=== PATIENT | male | born 1980 | race Caucasian/White ===

== ENCOUNTER 2021-08-24 17:07 | Emergency (ER) | payer OTHER ==
[2021-08-24 17:39] VITALS: O2SAT 96
[2021-08-24 17:49] LABS: COVID AG -BINAX NOW RAPID TEST POSITIVE (NEGATIVE)
--- NOTE | 2021-08-24 18:10 | ERPHSYRPT ---
- History of Present Illness Source: patient Exam Limitations: no limitations Patient Subjective Stated Complaint: fever Triage Nursing Assessment: Patient ambulated back to ED and transferred self to bed. Patient A+O X 3. Patient's skin pink, warm and dry. Patient complains of fever and body aches since last tuesday. Patient denies pain or discomfort. Physician History: 41 yo wm w cough/coryza/resolved fever/resolved myalgias x 1wk. Pt is un vaccinated. He denies N/V/D/WHITTEN. Timing/Duration: other (1wk) Cough Quality/Degree: dry cough Possible Cause: no prior episodes Modifying Factors: Improves With: coughing Associated Symptoms: cough, nasal congestion, nasal drainage, No fever, No chills, No chest pain/soreness, No dizziness, No earache, No facial pain, No headache, No lightheadedness, No muscle aches, No shortness of breath, No sinus infection, No sore throat Allergies/Adverse Reactions: amoxicillin Allergy (Verified 08/24/21 17:29) cephalexin [From Keflex] Allergy (Verified 08/24/21 17:29) Home Medications: atenoloL [Atenolol] 1 tab PO DAILY 08/24/21 [History] hydroCHLOROthiazide [Hydrochlorothiazide] 1 tab PO DAILY 08/24/21 [History] Hx Influenza Vaccination/Date Given: No Hx Pneumococcal Vaccination/Date Given: No Immunizations Up to Date: Yes Travel Risk - International Travel Have you traveled outside of the country in past 3 weeks: No - Coronavirus Screening Are you exhibiting any of the following symptoms?: Yes Symptoms: Fever, Headaches/Body Aches/Fatigue Close contact with a COVID-19 positive Pt in past 14-21 Days: No - Vaccine Status Have you recieved a Covid-19 vaccination: No - Review of Systems Constitutional: No Symptoms Eyes: No Symptoms Ears, Nose, & Throat: No Symptoms, Nose Congestion, Nose Discharge, Sinus Drainage Respiratory: Cough Cardiac: No Symptoms Abdominal/Gastrointestinal: No Symptoms Genitourinary Symptoms: No Symptoms Musculoskeletal: No Symptoms Skin: No Symptoms Neurological: No Symptoms Psychological: No Symptoms Endocrine: No Symptoms Hematologic/Lymphatic: No Symptoms Immunological/Allergic: No Symptoms - Past Medical History Pertinent Past Medical History: Yes Neurological History: No Pertinent History ENT History: No Pertinent History Cardiac History: Hypertension Respiratory History: No Pertinent History Endocrine Medical History: No Pertinent History Musculoskeletal History: No Pertinent History GI Medical History: No Pertinent History History: No Pertinent History Psycho-Social History: No Pertinent History Male Reproductive Disorders: No Pertinent History - Past Surgical History Past Surgical History: No Neuro Surgical History: No Pertinent History Cardiac: No Pertinent History Respiratory: No Pertinent History Gastrointestinal: No Pertinent History Genitourinary: No Pertinent History Musculoskeletal: No Pertinent History Male Surgical History: No Pertinent History - Social History Smoking Status: Current every day smoker How long have you smoked: years Exposure to second hand smoke: No Drug Use: none Patient Lives Alone: No Significant Family History: no pertinent family hx - Nursing Vital Signs Nursing Vital Signs: Initial Vital Signs Temperature 99.3 F 08/24/21 17:29 Pulse Rate 85 08/24/21 17:29 Respiratory Rate 18 08/24/21 17:29 Blood Pressure 162/128 08/24/21 17:29 O2 Sat by Pulse Oximetry 96 08/24/21 17:29 Pain Scale Pain Intensity 0 Hypertensive - Physical Exam General Appearance: no apparent distress Eye Exam: PERRL/EOMI, eyes nml inspection Ears, Nose, Throat Exam: normal ENT inspection, TMs normal, pharynx normal, moist mucous membranes Neck Exam: normal inspection, non-tender, supple, full range of motion, No meningismus, No mass, No Brudzinski, No Kernig's Respiratory Exam: normal breath sounds, lungs clear, airway intact, No respiratory distress Cardiovascular Exam: regular rate/rhythm, normal heart sounds, normal peripheral pulses, No murmur Gastrointestinal/Abdomen Exam: soft, normal bowel sounds, No tenderness Back Exam: normal inspection, normal range of motion, No CVA tenderness, No vertebral tenderness Extremity Exam: normal inspection, normal range of motion Neurologic Exam: alert, oriented x 3, cooperative, 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, normal mood/affect, nml cerebellar function, nml station & gait, sensation nml, No motor deficits, No sensory deficit Skin Exam: normal color, warm, dry, No rash Lymphatic Exam: No adenopathy SpO2 Interpretation: normal SpO2: 96 O2 Delivery: Room Air - Course Nursing assessment & vital signs reviewed: Yes Ordered Tests: Active Orders 24 hr Category Date Time Status COVID AG-BINAX NOW RAPID TEST Stat Lab 08/24/21 17:39 Completed Lab/Rad Data: Laboratory Results 08/24/21 Range/Units 17:39 SARS-CoV-2 Ag (Rapid) POSITIVE A* (NEGATIVE) - Progress Progress Note: 08/24/21 18:39 Pt to take BP meds when he gets home Counseled pt/family regarding: lab results, diagnosis, need for follow-up - Departure Departure Disposition: Home Clinical Impression: COVID, Hypertension Condition: Stable Critical Care Time: No Referrals: DOCTOR,NO FAMILY [Primary Care Provider] - Follow up/PCP as directed Instructions: Fever, Adult (DC), Coronavirus Disease 2019 (COVID-19) (DC) Additional Instructions: Get a pulse oximeter and monitor oxygen saturation 2-3 times a day Return to ER for persistent oxygen saturation less than 91% VitaminD 10,000units a day/Zinc 50mg a day/Pepcid 40mg a day Watch your blood pressure
[2021-08-24 18:11] VITALS: BP 149/119; PULSE 86
== END 2021-08-24 18:22 | disposition home or self-care (01) ==
LOC: ED 17:07
DX: U07.1 COVID-19 (principal); I10 Essential (primary) hypertension; R05.9 Cough, unspecified; R09.81 Nasal congestion; Z72.0 Tobacco use; Z79.899 Other long term (current) drug therapy
CPT/HCPCS: 99000; 99283

== ENCOUNTER 2022-04-19 16:05 | Emergency (ER) | payer MEDICARE, OTHER ==
--- NOTE | 2022-04-19 16:08 | ERPHSYRPT ---
- History of Present Illness Time Seen by Provider: 04/19/22 16:07 Source: patient Exam Limitations: no limitations Physician History: This is a morbidly obese white male who is 41 years of age and presents with dizziness and clammy feeling that began later in the morning. Symptoms have improved but are not completely resolved. He has no chest pain. He has no shortness of breath he has no abdominal pain. Patient is relatively newly diagnosed diabetic and he has a history of hypertension. There is been no recent changes to his medication that he has been on for over a month. He did not hit his head. Timing/Duration: today Cough Quality/Degree: no cough Possible Cause: no prior episodes Modifying Factors: Improves With: nothing Associated Symptoms: dizziness, headache, lightheadedness, No fever, No chills, No cough, No nasal congestion, No shortness of breath, No sore throat Allergies/Adverse Reactions: amoxicillin Allergy (Verified 08/24/21 17:29) cephalexin [From Keflex] Allergy (Verified 08/24/21 17:29) Home Medications: atenoloL [Atenolol] 1 tab PO DAILY 08/24/21 [History] hydroCHLOROthiazide [Hydrochlorothiazide] 1 tab PO DAILY 08/24/21 [History] Hx Influenza Vaccination/Date Given: No Hx Pneumococcal Vaccination/Date Given: No Travel Risk - International Travel Have you traveled outside of the country in past 3 weeks: No - Coronavirus Screening Are you exhibiting any of the following symptoms?: Yes Symptoms: Headaches/Body Aches/Fatigue - Vaccine Status Have you recieved a Covid-19 vaccination: No - Review of Systems Constitutional: No Symptoms Eyes: No Symptoms Ears, Nose, & Throat: No Symptoms Respiratory: No Symptoms Cardiac: No Symptoms Abdominal/Gastrointestinal: No Symptoms Genitourinary Symptoms: No Symptoms Musculoskeletal: Arthralgias, Myalgias Skin: No Symptoms Neurological: Dizziness Psychological: No Symptoms Endocrine: No Symptoms Hematologic/Lymphatic: No Symptoms Immunological/Allergic: No Symptoms All Other Systems: Reviewed and Negative - Past Medical History Pertinent Past Medical History: Yes Neurological History: No Pertinent History ENT History: No Pertinent History Cardiac History: Hypertension Respiratory History: No Pertinent History Endocrine Medical History: No Pertinent History Musculoskeletal History: No Pertinent History GI Medical History: No Pertinent History History: No Pertinent History Psycho-Social History: No Pertinent History Male Reproductive Disorders: No Pertinent History - Past Surgical History Past Surgical History: No Neuro Surgical History: No Pertinent History Cardiac: No Pertinent History Respiratory: No Pertinent History Gastrointestinal: No Pertinent History Genitourinary: No Pertinent History Musculoskeletal: No Pertinent History Male Surgical History: No Pertinent History - Social History Smoking Status: Current every day smoker How long have you smoked: years Exposure to second hand smoke: No Drug Use: none Patient Lives Alone: No Significant Family History: no pertinent family hx - Nursing Vital Signs Nursing Vital Signs: Initial Vital Signs Temperature 98.7 F 04/19/22 16:05 Pulse Rate 73 04/19/22 16:05 Respiratory Rate 14 04/19/22 16:05 Blood Pressure 155/100 04/19/22 16:05 O2 Sat by Pulse Oximetry 95 04/19/22 16:05 Pain Scale Pain Intensity 0 - Physical Exam General Appearance: no apparent distress, alert, anxiety, obese Eye Exam: PERRL/EOMI, eyes nml inspection Ears, Nose, Throat Exam: normal ENT inspection, moist mucous membranes Neck Exam: normal inspection, non-tender, supple, full range of motion Respiratory Exam: normal breath sounds, lungs clear, airway intact, No chest tenderness, No respiratory distress Cardiovascular Exam: regular rate/rhythm, normal heart sounds, normal peripheral pulses Gastrointestinal/Abdomen Exam: soft, normal bowel sounds, No tenderness Rectal Exam: not done Back Exam: normal inspection, normal range of motion, No CVA tenderness, No vertebral tenderness Extremity Exam: normal inspection, normal range of motion, pelvis stable Neurologic Exam: alert, oriented x 3, cooperative, 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, normal mood/affect, nml cerebellar function, nml station & gait, sensation nml Skin Exam: normal color, warm, dry Lymphatic Exam: No adenopathy SpO2 Interpretation: normal O2 Delivery: Room Air - Course Nursing assessment & vital signs reviewed: Yes Ordered Tests: Active Orders 24 hr Category Date Time Status EKG-ER Only STAT Care 04/19/22 16:42 Active IV Insertion STAT Care 04/19/22 16:42 Active POCT Glucose Check STAT Care 04/19/22 16:48 Active HEAD WITHOUT CONTRAST [CT] Stat Exams 04/19/22 16:43 Completed CBC W DIFF Stat Lab 04/19/22 16:56 Completed CMP Stat Lab 04/19/22 16:56 Completed Lactic Acid Stat Lab 04/19/22 16:55 Completed MAGNESIUM Stat Lab 04/19/22 16:56 Completed POCT GLUCOSE Stat Lab 04/19/22 16:25 Completed TROPONIN Q4H Lab 04/19/22 15:56 Completed TROPONIN Q4H Lab 04/19/22 20:45 Ordered UA W/RFX CULTURE Stat Lab 04/19/22 16:47 Completed Lab/Rad Data: Laboratory Result Diagrams 04/19/22 16:56 04/19/22 16:56 Laboratory Results 04/19/22 04/19/22 04/19/22 Range/Units 16:56 16:56 16:56 WBC 11.9 H (4.0-10.5) x10^3/uL RBC 5.82 H (4.1-5.6) x10^6/uL Hgb 16.8 (12.5-18.0) g/dL Hct 51.5 H (42-50) % MCV 88.5 (78-100) fL MCH 28.9 (26-32) pg MCHC 32.6 (32-36) g/dL RDW 13.0 (11.5-14.0) % Plt Count 218 (150-450) x10^3/uL MPV 11.0 (7.5-11.0) fL Gran % 73.0 H (36.0-66.0) % Immature Gran % (Auto) 0.3 (0.00-0.4) % Nucleat RBC Rel Count 0.0 (0.00-0.1) % Eos # (Auto) 0.32 (0-0.5) x10^3/uL Immature Gran # (Auto) 0.04 H (0.00-0.03) x10^3u/L Absolute Lymphs (auto) 2.08 (1.0-4.6) x10^3/uL Absolute Monos (auto) 0.69 (0.0-1.3) x10^3/uL Absolute Nucleated RBC 0.00 (0.00-0.01) x10^3u/L Lymphocytes % 17.5 L (24.0-44.0) % Monocytes % 5.8 (0.0-12.0) % Eosinophils % 2.7 (0.00-5.0) % Basophils % 0.7 (0.0-0.4) % Absolute Granulocytes 8.68 H (1.4-6.9) x10^3/uL Basophils # 0.08 (0-0.4) x10^3/uL Sodium 137 (137-145) mmol/L Potassium 3.8 (3.5-5.1) mmol/L Chloride 102 (98-107) mmol/L Carbon Dioxide 26 (22-30) mmol/L Anion Gap 12.8 (5-15) MEQ/L BUN 15 (9-20) mg/dL Creatinine 0.95 (0.66-1.25) mg/dL Estimated GFR > 60.0 ML/MIN Glucose 135 H (74-106) mg/dL POC Glucometer (74 to 106) mg/dL Lactic Acid (0.4-2.0) Calcium 8.9 (8.4-10.2) mg/dL Magnesium 2.2 (1.6-2.3) mg/dL Total Bilirubin 0.80 (0.2-1.3) mg/dL AST 27 (17-59) U/L ALT 31 (0-50) U/L Alkaline Phosphatase 57 (38-126) U/L Troponin I (0.000-0.034) ng/mL Serum Total Protein 8.0 (6.3-8.2) g/dL Albumin 4.4 (3.5-5.0) g/dL Urinalys Dipstick Clnc Urine Color (YELLOW) Urine Appearance (CLEAR) Urine pH (5-6) Ur Specific [place] (1.005-1.025) POC Urine Protein Conf (Negative) Urine Ketones (NEGATIVE) Urine Nitrite (NEGATIVE) Urine Bilirubin (NEGATIVE) Urine Urobilinogen (0-1) mg/dL Urine Leukocytes (NEGATIVE) Urine WBC (Auto) (0-5) /HPF Urine RBC (Auto) (0-2) /HPF U Epithel Cells (Auto) (FEW) /HPF Urine Bacteria (Auto) (NEGATIVE) /HPF Urine RBC (0-5) Peter/ul Ur Culture Indicated? Urine Glucose (NEGATIVE) mg/dL Influenza Type A Ag NEGATIVE (NEGATIVE) Influenza Type B Ag NEGATIVE (NEGATIVE) RSV (PCR) NEGATIVE (Negative) SARS-CoV-2 (PCR) NEGATIVE (NEGATIVE) 09/26/22 09/26/22 09/26/22 Range/Units 16:55 16:47 16:25 WBC (4.0-10.5) x10^3/uL RBC (4.1-5.6) x10^6/uL Hgb (12.5-18.0) g/dL Hct (42-50) % MCV (78-100) fL MCH (26-32) pg MCHC (32-36) g/dL RDW (11.5-14.0) % Plt Count (150-450) x10^3/uL MPV (7.5-11.0) fL Gran % (36.0-66.0) % Immature Gran % (Auto) (0.00-0.4) % Nucleat RBC Rel Count (0.00-0.1) % Eos # (Auto) (0-0.5) x10^3/uL Immature Gran # (Auto) (0.00-0.03) x10^3u/L Absolute Lymphs (auto) (1.0-4.6) x10^3/uL Absolute Monos (auto) (0.0-1.3) x10^3/uL Absolute Nucleated RBC (0.00-0.01) x10^3u/L Lymphocytes % (24.0-44.0) % Monocytes % (0.0-12.0) % Eosinophils % (0.00-5.0) % Basophils % (0.0-0.4) % Absolute Granulocytes (1.4-6.9) x10^3/uL Basophils # (0-0.4) x10^3/uL Sodium (137-145) mmol/L Potassium (3.5-5.1) mmol/L Chloride (98-107) mmol/L Carbon Dioxide (22-30) mmol/L Anion Gap (5-15) MEQ/L BUN (9-20) mg/dL Creatinine (0.66-1.25) mg/dL Estimated GFR ML/MIN Glucose (74-106) mg/dL POC Glucometer 140 H (74 to 106) mg/dL Lactic Acid 1.2 (0.4-2.0) Calcium (8.4-10.2) mg/dL Magnesium (1.6-2.3) mg/dL Total Bilirubin (0.2-1.3) mg/dL AST (17-59) U/L ALT (0-50) U/L Alkaline Phosphatase (38-126) U/L Troponin I (0.000-0.034) ng/mL Serum Total Protein (6.3-8.2) g/dL Albumin (3.5-5.0) g/dL Urinalys Dipstick Clnc MAIN LAB Urine Color YELLOW (YELLOW) Urine Appearance CLEAR (CLEAR) Urine pH 6.0 (5-6) Ur Specific [place] 1.010 (1.005-1.025) POC Urine Protein Conf NEGATIVE (Negative) Urine Ketones NEGATIVE (NEGATIVE) Urine Nitrite NEGATIVE (NEGATIVE) Urine Bilirubin NEGATIVE (NEGATIVE) Urine Urobilinogen 0.2 (0-1) mg/dL Urine Leukocytes NEGATIVE (NEGATIVE) Urine WBC (Auto) NONE (0-5) /HPF Urine RBC (Auto) NONE (0-2) /HPF U Epithel Cells (Auto) NONE (FEW) /HPF Urine Bacteria (Auto) NONE (NEGATIVE) /HPF Urine RBC NEGATIVE (0-5) Peter/ul Ur Culture Indicated? NO Urine Glucose NEGATIVE (NEGATIVE) mg/dL Influenza Type A Ag (NEGATIVE) Influenza Type B Ag (NEGATIVE) RSV (PCR) (Negative) SARS-CoV-2 (PCR) (NEGATIVE) 04/19/22 Range/Units 15:56 WBC (4.0-10.5) x10^3/uL RBC (4.1-5.6) x10^6/uL Hgb (12.5-18.0) g/dL Hct (42-50) % MCV (78-100) fL MCH (26-32) pg MCHC (32-36) g/dL RDW (11.5-14.0) % Plt Count (150-450) x10^3/uL MPV (7.5-11.0) fL Gran % (36.0-66.0) % Immature Gran % (Auto) (0.00-0.4) % Nucleat RBC Rel Count (0.00-0.1) % Eos # (Auto) (0-0.5) x10^3/uL Immature Gran # (Auto) (0.00-0.03) x10^3u/L Absolute Lymphs (auto) (1.0-4.6) x10^3/uL Absolute Monos (auto) (0.0-1.3) x10^3/uL Absolute Nucleated RBC (0.00-0.01) x10^3u/L Lymphocytes % (24.0-44.0) % Monocytes % (0.0-12.0) % Eosinophils % (0.00-5.0) % Basophils % (0.0-0.4) % Absolute Granulocytes (1.4-6.9) x10^3/uL Basophils # (0-0.4) x10^3/uL Sodium (137-145) mmol/L Potassium (3.5-5.1) mmol/L Chloride (98-107) mmol/L Carbon Dioxide (22-30) mmol/L Anion Gap (5-15) MEQ/L BUN (9-20) mg/dL Creatinine (0.66-1.25) mg/dL Estimated GFR ML/MIN Glucose (74-106) mg/dL POC Glucometer (74 to 106) mg/dL Lactic Acid (0.4-2.0) Calcium (8.4-10.2) mg/dL Magnesium (1.6-2.3) mg/dL Total Bilirubin (0.2-1.3) mg/dL AST (17-59) U/L ALT (0-50) U/L Alkaline Phosphatase (38-126) U/L Troponin I < 0.012 (0.000-0.034) ng/mL Serum Total Protein (6.3-8.2) g/dL Albumin (3.5-5.0) g/dL Urinalys Dipstick Clnc Urine Color (YELLOW) Urine Appearance (CLEAR) Urine pH (5-6) Ur Specific [place] (1.005-1.025) POC Urine Protein Conf (Negative) Urine Ketones (NEGATIVE) Urine Nitrite (NEGATIVE) Urine Bilirubin (NEGATIVE) Urine Urobilinogen (0-1) mg/dL Urine Leukocytes (NEGATIVE) Urine WBC (Auto) (0-5) /HPF Urine RBC (Auto) (0-2) /HPF U Epithel Cells (Auto) (FEW) /HPF Urine Bacteria (Auto) (NEGATIVE) /HPF Urine RBC (0-5) Peter/ul Ur Culture Indicated? Urine Glucose (NEGATIVE) mg/dL Influenza Type A Ag (NEGATIVE) Influenza Type B Ag (NEGATIVE) RSV (PCR) (Negative) SARS-CoV-2 (PCR) (NEGATIVE) - Progress Progress: improved Air Movement: good Progress Note: 04/19/22 18:12 CAT scan of the head shows no acute intracranial abnormality. Medical decision making: This patient has some dizziness and no evidence of any acute, emergent cause. The patient does state that he has some nasal drainage. There is mild leukocytosis present and a mild left shift. We will place him on a Z-Rob and have him follow-up with his primary care physician for further evaluation and management. Blood Culture(s) Obtained: No Antibiotics given: No Counseled pt/family regarding: lab results, diagnosis, need for follow-up, rad results - Departure Departure Disposition: Home Clinical Impression: Clinical sinusitis, Leukocytosis, unspecified Condition: Stable Critical Care Time: No Referrals: TIMUR POSEY [Primary Care Provider] - Follow up/PCP as directed Additional Instructions: Drink plenty fluids. Monitor your blood sugar closely. Take your medication as prescribed. Follow-up with your primary care physician for further evaluation and management. Prescriptions: Azithromycin 250 mg [Zithromax 250 MG TABLET] 250 mg PO ZPACK #6 tablet
[2022-04-19 17:06] LABS: Absolute Neutrophil Ct (ANC) 8.68 x10^3/uL (1.4-6.9); Basophil (Absolute #) 0.08 x10^3/uL (0-0.4); Eosinophil % 2.7 % (0.00-5.0); Eosinophil (Absolute #) 0.32 x10^3/uL (0-0.5); Hematocrit 51.5 % (42-50); Hemoglobin 16.8 g/dL (12.5-18.0); Lymphocyte (Absolute #) 2.08 x10^3/uL (1.0-4.6); Lymphocytes % 17.5 % (24.0-44.0); Mean Cell Volume 88.5 fL (78-100); Mean Corpuscular Hemoglobin 28.9 pg (26-32); Mean Corpuscular Hgb Concent. 32.6 g/dL (32-36); Monocyte (Absolute #) 0.69 x10^3/uL (0.0-1.3); Monocytes % 5.8 % (0.0-12.0); Platelet Count 218 x10^3/uL (150-450); Red Blood Count 5.82 x10^6/uL (4.1-5.6); White Blood Count 11.9 x10^3/uL (4.0-10.5)
[2022-04-19 17:12] VITALS: BP 130/88
[2022-04-19 17:16] LABS: Appearance CLEAR (CLEAR); Bilirubin NEGATIVE (NEGATIVE); Dipstick done @ ? MAIN LAB; Glucose NEGATIVE (NEGATIVE); Ketones NEGATIVE (NEGATIVE); Nitrite NEGATIVE (NEGATIVE); Protein,Urine Dip NEGATIVE (Negative); RBC NEGATIVE Ery/ul (0-5); Urobilinogen 0.2 mg/dL (0-1)
[2022-04-19 17:19] LABS: Urine Cultured Indicated? NO
--- NOTE | 2022-04-19 17:22 | XRAY ---
Indication: Dizziness. Multiple contiguous axial images obtained through the head without contrast. Comparison: None Normal appearing brain parenchyma, ventricles, and bony calvarium for patient's age. Visualized paranasal sinuses and mastoid air cells are clear. Impression: Normal CT head without contrast exam.
[2022-04-19 17:29] LABS: ALBUMIN 4.4 g/dL (3.5-5.0); ALKALINE PHOSPHATASE 57 U/L (38-126); ANION GAP 12.8 MEQ/L (5-15); BLOOD UREA NITROGEN 15 mg/dL (9-20); CHLORIDE 102 mmol/L (98-107); Calcium 8.9 mg/dL (8.4-10.2); Carbon Dioxide 26 mmol/L (22-30); Creatinine 1 0.95 mg/dL (0.66-1.25); EST GLOMERULAR FILTRATION RATE > 60.0 ML/MIN; Glucose 135 mg/dL (74-106); MAGNESIUM 2.2 mg/dL (1.6-2.3); Potassium 3.8 mmol/L (3.5-5.1); SGOT/AST 27 U/L (17-59); SGPT/ALT 31 U/L (0-50); SODIUM 137 mmol/L (137-145)
[2022-04-19 17:39] LABS: INFLUENZA A NEGATIVE (NEGATIVE); INFLUENZA B NEGATIVE (NEGATIVE); RESPIRATORY SYNCTIAL VIRUS NEGATIVE (Negative); SARS-CoV-2 Xpert Express NEGATIVE (NEGATIVE)
[2022-04-19 18:02] VITALS: PULSE 64; O2SAT 93
== END 2022-04-19 18:29 | disposition home or self-care (01) ==
LOC: ED 16:05
DX: J32.9 Chronic sinusitis, unspecified (principal); D72.829 Elevated white blood cell count, unspecified; R42 Dizziness and giddiness; R51.9 Headache, unspecified; I10 Essential (primary) hypertension; E11.9 Type 2 diabetes mellitus without complications; Z72.0 Tobacco use; Z79.899 Other long term (current) drug therapy; Z28.310 Unvaccinated for COVID-19; Z20.828 Contact with and (suspected) exposure to other viral communicable diseases
CPT/HCPCS: 0241U; 36000; 36415; 70450; 80053; 81015; 82947; 83605; 83735; 84484; 85025; 93005; 99284

== ENCOUNTER 2022-04-22 16:06 | Emergency (ER) | payer MEDICARE, OTHER ==
[2022-04-22] MEDS ORDERED: Sodium Chloride 0.9% 1000 ML 1,000 ML IV STA (16:42)
[2022-04-22] MEDS ORDERED: Sodium Chloride 0.9% 1000 ML 1,000 ML ONE (16:50)
[2022-04-22 17:00] LABS: Absolute Neutrophil Ct (ANC) 8.97 x10^3/uL (1.4-6.9); Basophil (Absolute #) 0.09 x10^3/uL (0-0.4); Eosinophil % 2.4 % (0.00-5.0); Eosinophil (Absolute #) 0.28 x10^3/uL (0-0.5); Hematocrit 52.5 % (42-50); Lymphocyte (Absolute #) 1.63 x10^3/uL (1.0-4.6); Lymphocytes % 13.9 % (24.0-44.0); Mean Cell Volume 91.5 fL (78-100); Mean Corpuscular Hemoglobin 29.6 pg (26-32); Mean Corpuscular Hgb Concent. 32.4 g/dL (32-36); Mean Platelet Volume 10.6 fL (7.5-11.0); Monocyte (Absolute #) 0.69 x10^3/uL (0.0-1.3); Monocytes % 5.9 % (0.0-12.0); Neutrophil % 76.7 % (36.0-66.0); Platelet Count 154 x10^3/uL (150-450); Red Blood Count 5.74 x10^6/uL (4.1-5.6); Red Cell Distribution Width 13.1 % (11.5-14.0); White Blood Count 11.7 x10^3/uL (4.0-10.5)
[2022-04-22 17:51] LABS: ALBUMIN 4.1 g/dL (3.5-5.0); ALKALINE PHOSPHATASE 53 U/L (38-126); ANION GAP 8.4 MEQ/L (5-15); BLOOD UREA NITROGEN 11 mg/dL (9-20); CHLORIDE 102 mmol/L (98-107); Calcium 8.6 mg/dL (8.4-10.2); Carbon Dioxide 30 mmol/L (22-30); Creatinine 1 0.93 mg/dL (0.66-1.25); EST GLOMERULAR FILTRATION RATE > 60.0 ML/MIN; Glucose 123 mg/dL (74-106); Potassium 3.6 mmol/L (3.5-5.1); SGOT/AST 31 U/L (17-59); SGPT/ALT 38 U/L (0-50); SODIUM 136 mmol/L (137-145); Total Protein 7.1 g/dL (6.3-8.2)
[2022-04-22 18:12] LABS: MAGNESIUM 2.1 mg/dL (1.6-2.3); TSH, 3RD Generation 2.35 mIU/L (0.47-4.68)
[2022-04-22 18:42] VITALS: O2SAT 96
--- NOTE | 2022-04-22 18:42 | ERPHSYRPT ---
- History of Present Illness Time Seen by Provider: 04/22/22 16:12 Patient Subjective Stated Complaint: PT HERE FOR NOT FEELING WELL TODAY, CO COLD HANDS, HEADACHE, DIZZY WHEN MOVING AROUND, STATES FEELS LIKE HEART IS EITHER RACING OR GOING SLOW, SWEATING . STARTED METFORMIN YESTERDAY AND IS ON ANTIBOITC FOR SINUS INFECTION Triage Nursing Assessment: PT ALERT, ARRIVED PER WC, ABLE TO UNDRESS SELF. RESP EASY, SKIN W/D/P. HAS FACE MASK IN PLACE, CHEST CLEAR. Physician History: 41 years old male with history of hypertension, tachycardia, hyper lipidemia, diabetes mellitus was recently evaluated in the ER for feeling dizzy lightheaded, was diagnosed with sinusitis and is currently taking Zithromax presented with chief complaint of feeling weak fatigued tired and worn out since morning. Also reports having tachycardia with heart rate in low 100s and took atenolol around 3 PM and currently in 60s and 70s. Patient reports feeling dizzy and lightheaded with activities and still having some frontal headache from previous visit. Denies any focal numbness or weakness. Patient reports he felt last night as if his heart rate was either fast or slow. He also started taking metformin and statin yesterday and taking Zithromax for the last couple of days. Timing/Duration: day(s) (1), intermittent Severity: moderate Associated Symptoms: headaches, malaise, weakness, No abdominal pain Allergies/Adverse Reactions: amoxicillin Allergy (Verified 04/22/22 16:26) cephalexin [From Keflex] Allergy (Verified 04/22/22 16:26) Home Medications: atenoloL [Atenolol] 1 tab PO DAILY 08/24/21 [History] hydroCHLOROthiazide [Hydrochlorothiazide] 1 tab PO DAILY 08/24/21 [History] Atenolol 50 mg [Tenormin 50 mg] 50 mg PO DAILY 04/22/22 [History] Fenofibrate [Fenoglide] 1 ea DAILY 04/22/22 [History] Metformin HCl 500 mg [Glucophage 500 MG] 1 ea DAILY 04/22/22 [History] Hx Tetanus, Diphtheria Vaccination/Date Given: No Hx Influenza Vaccination/Date Given: No Hx Pneumococcal Vaccination/Date Given: No Immunizations Up to Date: Yes Travel Risk - International Travel Have you traveled outside of the country in past 3 weeks: No - Coronavirus Screening Are you exhibiting any of the following symptoms?: No Close contact with a COVID-19 positive Pt in past 14-21 Days: No - Vaccine Status Have you recieved a Covid-19 vaccination: No - Review of Systems Constitutional: Fatigue, Weakness Eyes: No Symptoms Ears, Nose, & Throat: No Symptoms Respiratory: No Symptoms Cardiac: Palpitations Abdominal/Gastrointestinal: No Symptoms Genitourinary Symptoms: No Symptoms Musculoskeletal: Myalgias Skin: No Symptoms Neurological: Headache Psychological: No Symptoms Endocrine: No Symptoms Hematologic/Lymphatic: No Symptoms Immunological/Allergic: No Symptoms - Past Medical History Pertinent Past Medical History: Yes Neurological History: No Pertinent History ENT History: No Pertinent History Cardiac History: Hypertension Respiratory History: No Pertinent History Endocrine Medical History: Diabetes Type II Musculoskeletal History: No Pertinent History GI Medical History: No Pertinent History History: No Pertinent History Psycho-Social History: No Pertinent History Male Reproductive Disorders: No Pertinent History Other Medical History: NEW ONSET OF DIABETES - Past Surgical History Past Surgical History: No Neuro Surgical History: No Pertinent History Cardiac: No Pertinent History Respiratory: No Pertinent History Gastrointestinal: No Pertinent History Genitourinary: No Pertinent History Musculoskeletal: No Pertinent History Male Surgical History: No Pertinent History - Social History Smoking Status: Current every day smoker How long have you smoked: years Exposure to second hand smoke: No Drug Use: none Patient Lives Alone: No Significant Family History: no pertinent family hx - Nursing Vital Signs Nursing Vital Signs: Initial Vital Signs Temperature 96.8 F 04/22/22 16:21 Pulse Rate 69 04/22/22 16:21 Respiratory Rate 20 04/22/22 16:21 Blood Pressure 167/98 04/22/22 16:21 O2 Sat by Pulse Oximetry 96 04/22/22 16:21 Pain Scale Pain Intensity 6 - Physical Exam General Appearance: no apparent distress, alert, anxiety Eye Exam: PERRL/EOMI, eyes nml inspection Ears, Nose, Throat Exam: normal ENT inspection, TMs normal, pharynx normal, moist mucous membranes Neck Exam: normal inspection, non-tender, supple, full range of motion Respiratory Exam: normal breath sounds, lungs clear Cardiovascular Exam: regular rate/rhythm, normal heart sounds Gastrointestinal/Abdomen Exam: soft, normal bowel sounds, No tenderness Back Exam: normal inspection, normal range of motion Extremity Exam: normal inspection, normal range of motion, pelvis stable Neurologic Exam: alert, oriented x 3, cooperative, nutritionist II-XII nml as tested, nml cerebellar function, sensation nml, motor deficits, No normal mood/affect (Anxious), No sensory deficit Skin Exam: normal color SpO2 Interpretation: normal SpO2: 96 O2 Delivery: Room Air - Course EKG Interpreted by Me: RATE (64), Sinus Rhythm, NORMAL AXIS, NORMAL INTERVALS, NORMAL QRS Ordered Tests: Medication Summary Discontinued Medications Generic Name Dose Route Start Last Admin Trade Name Brandin PRN Reason Stop Dose Admin Sodium Chloride 1,000 mls @ 999 mls/hr 04/22/22 16:42 04/22/22 17:52 Sodium Chloride 0.9% 1000 Ml IV 04/22/22 17:42 Infused .Q1H1M STA Infusion Sodium Chloride Confirm 04/22/22 16:50 Sodium Chloride 0.9% 1000 Ml Administered 04/22/22 16:51 Dose 1,000 mls @ ud .[facility]TE .[facility] Lab/Rad Data: Laboratory Result Diagrams 04/22/22 16:55 04/22/22 16:55 Laboratory Results 04/22/22 04/22/22 04/22/22 Range/Units 16:55 16:55 16:55 WBC (4.0-10.5) x10^3/uL RBC (4.1-5.6) x10^6/uL Hgb (12.5-18.0) g/dL Hct (42-50) % MCV (78-100) fL MCH (26-32) pg MCHC (32-36) g/dL RDW (11.5-14.0) % Plt Count (150-450) x10^3/uL MPV (7.5-11.0) fL Gran % (36.0-66.0) % Immature Gran % (Auto) (0.00-0.4) % Nucleat RBC Rel Count (0.00-0.1) % Eos # (Auto) (0-0.5) x10^3/uL Immature Gran # (Auto) (0.00-0.03) x10^3u/L Absolute Lymphs (auto) (1.0-4.6) x10^3/uL Absolute Monos (auto) (0.0-1.3) x10^3/uL Absolute Nucleated RBC (0.00-0.01) x10^3u/L Lymphocytes % (24.0-44.0) % Monocytes % (0.0-12.0) % Eosinophils % (0.00-5.0) % Basophils % (0.0-0.4) % Absolute Granulocytes (1.4-6.9) x10^3/uL Basophils # (0-0.4) x10^3/uL Sodium 136 L (137-145) mmol/L Potassium 3.6 (3.5-5.1) mmol/L Chloride 102 (98-107) mmol/L Carbon Dioxide 30 (22-30) mmol/L Anion Gap 8.4 (5-15) MEQ/L BUN 11 (9-20) mg/dL Creatinine 0.93 (0.66-1.25) mg/dL Estimated GFR > 60.0 ML/MIN Glucose 123 H (74-106) mg/dL POC Glucometer (74 to 106) mg/dL Calcium 8.6 (8.4-10.2) mg/dL Magnesium 2.1 (1.6-2.3) mg/dL Total Bilirubin 1.10 (0.2-1.3) mg/dL AST 31 (17-59) U/L ALT 38 (0-50) U/L Alkaline Phosphatase 53 (38-126) U/L Troponin I < 0.012 (0.000-0.034) ng/mL NT-Pro-B Natriuret Pep 52.0 (0-450) pg/mL Serum Total Protein 7.1 (6.3-8.2) g/dL Albumin 4.1 (3.5-5.0) g/dL TSH 3rd Generation 2.350 (0.47-4.68) mIU/L 04/22/22 04/22/22 Range/Units 16:55 16:21 WBC 11.7 H (4.0-10.5) x10^3/uL RBC 5.74 H (4.1-5.6) x10^6/uL Hgb 17.0 (12.5-18.0) g/dL Hct 52.5 H (42-50) % MCV 91.5 (78-100) fL MCH 29.6 (26-32) pg MCHC 32.4 (32-36) g/dL RDW 13.1 (11.5-14.0) % Plt Count 154 (150-450) x10^3/uL MPV 10.6 (7.5-11.0) fL Gran % 76.7 H (36.0-66.0) % Immature Gran % (Auto) 0.3 (0.00-0.4) % Nucleat RBC Rel Count 0.0 (0.00-0.1) % Eos # (Auto) 0.28 (0-0.5) x10^3/uL Immature Gran # (Auto) 0.03 (0.00-0.03) x10^3u/L Absolute Lymphs (auto) 1.63 (1.0-4.6) x10^3/uL Absolute Monos (auto) 0.69 (0.0-1.3) x10^3/uL Absolute Nucleated RBC 0.00 (0.00-0.01) x10^3u/L Lymphocytes % 13.9 L (24.0-44.0) % Monocytes % 5.9 (0.0-12.0) % Eosinophils % 2.4 (0.00-5.0) % Basophils % 0.8 (0.0-0.4) % Absolute Granulocytes 8.97 H (1.4-6.9) x10^3/uL Basophils # 0.09 (0-0.4) x10^3/uL Sodium (137-145) mmol/L Potassium (3.5-5.1) mmol/L Chloride (98-107) mmol/L Carbon Dioxide (22-30) mmol/L Anion Gap (5-15) MEQ/L BUN (9-20) mg/dL Creatinine (0.66-1.25) mg/dL Estimated GFR ML/MIN Glucose (74-106) mg/dL POC Glucometer 162 H (74 to 106) mg/dL Calcium (8.4-10.2) mg/dL Magnesium (1.6-2.3) mg/dL Total Bilirubin (0.2-1.3) mg/dL AST (17-59) U/L ALT (0-50) U/L Alkaline Phosphatase (38-126) U/L Troponin I (0.000-0.034) ng/mL NT-Pro-B Natriuret Pep (0-450) pg/mL Serum Total Protein (6.3-8.2) g/dL Albumin (3.5-5.0) g/dL TSH 3rd Generation (0.47-4.68) mIU/L - Progress Progress: improved, re-examined Progress Note: 04/22/22 18:40 Is offered symptomatic treatment for headache but does not want anything, not even Tylenol. Given fluid bolus, on reevaluation feeling better. EKG did not show any acute ischemic changes or arrhythmias. Unremarkable chemistries. Chest x-ray negative for any acute cardiopulmonary findings reviewed by me. Negative troponins. Patient has a recent CT head done which was essentially unremarkable. Nonfocal neuro exam throughout stay in the ER. Patient recently started Zithromax and also started statin along with metformin since yesterday. Part of his symptoms are secondary to side effects. Patient is complaining of tachybradycardia syndrome, recommended not taking his atenolol this evening as he has already taken 1 dose prior to arrival and talk to his primary care and then readjust the dose. Do not think patient needs to be admitted or any other work-up and is stable for discharge with outpatient follow-up. Counseled pt/family regarding: lab results, diagnosis, need for follow-up, lavelle kwan - Departure Departure Disposition: Home Clinical Impression: Generalized weakness, Headache Condition: Stable Critical Care Time: No Referrals: TIMUR POSEY [Primary Care Provider] - Follow up/PCP as directed Instructions: Headache, Adult (DC) Additional Instructions: Do not take your atenolol this evening. Talk to your primary care before restarting atenolol tomorrow. Monitor your heart rate. Return to ER for any worsening.
[2022-04-22 19:10] VITALS: BP 141/92; PULSE 59
--- NOTE | 2022-04-22 22:08 | XRAY ---
Indication: General weakness. Dizziness. Comparison: None Portable chest demonstrates normal heart, lungs, and bony thorax.
== END 2022-04-22 19:20 | disposition home or self-care (01) ==
LOC: ED 16:06
DX: R53.1 Weakness (principal); R51.9 Headache, unspecified; R42 Dizziness and giddiness; R53.83 Other fatigue; I10 Essential (primary) hypertension; E78.5 Hyperlipidemia, unspecified; E11.9 Type 2 diabetes mellitus without complications; Z72.0 Tobacco use; Z79.84 Long term (current) use of oral hypoglycemic drugs; Z79.899 Other long term (current) drug therapy; Z28.310 Unvaccinated for COVID-19
CPT/HCPCS: 36415; 71045; 80053; 82947; 83735; 83880; 84443; 84484; 85025; 93005; 93041; 96360; 99284

== ENCOUNTER 2022-04-27 17:36 | Emergency (ER) | payer MEDICARE, OTHER ==
[2022-04-27 18:15] LABS: Absolute Neutrophil Ct (ANC) 7.54 x10^3/uL (1.4-6.9); Eosinophil % 2.8 % (0.00-5.0); Hematocrit 50.5 % (42-50); Hemoglobin 16.9 g/dL (12.5-18.0); Lymphocyte (Absolute #) 1.97 x10^3/uL (1.0-4.6); Lymphocytes % 18.6 % (24.0-44.0); Mean Cell Volume 87.8 fL (78-100); Mean Corpuscular Hemoglobin 29.4 pg (26-32); Mean Corpuscular Hgb Concent. 33.5 g/dL (32-36); Monocyte (Absolute #) 0.63 x10^3/uL (0.0-1.3); Monocytes % 5.9 % (0.0-12.0); Neutrophil % 71.3 % (36.0-66.0); Platelet Count 234 x10^3/uL (150-450); Red Blood Count 5.75 x10^6/uL (4.1-5.6); White Blood Count 10.6 x10^3/uL (4.0-10.5)
[2022-04-27 18:29] LABS: ALBUMIN 4.7 g/dL (3.5-5.0); ALKALINE PHOSPHATASE 50 U/L (38-126); ANION GAP 8.2 MEQ/L (5-15); BLOOD UREA NITROGEN 11 mg/dL (9-20); CHLORIDE 99 mmol/L (98-107); Calcium 9.2 mg/dL (8.4-10.2); Carbon Dioxide 34 mmol/L (22-30); EST GLOMERULAR FILTRATION RATE > 60.0 ML/MIN; Glucose 120 mg/dL (74-106); Potassium 3.7 mmol/L (3.5-5.1); SGOT/AST 36 U/L (17-59); SGPT/ALT 55 U/L (0-50); SODIUM 138 mmol/L (137-145)
--- NOTE | 2022-04-27 19:59 | ERPHSYRPT ---
- History of Present Illness Time Seen by Provider: 04/27/22 17:50 Source: patient Patient Subjective Stated Complaint: Pt states "I have been in here about 3 times now and I am not any better. I have been having a low heart rate, getting dizzy and have some pressure in my left chest." Triage Nursing Assessment: PT presented alert and oriented X 3, skin wpd. Pt ambulates with an upright steady gait, able to speak in clear full sentences pt in no apparent respiratory distress. Physician History: Patient is a 41-year-old male presents to emergency department for evaluation of symptomatic bradycardia. Patient states he has been experiencing some dizziness associated with bradycardia for the past week. No syncope. Patient was seen at urgent care and advised to come to our ED for evaluation. Patient has been experiencing some mild left upper chest pressure. No associated nausea vomiting or diaphoresis. No trauma. No fever. No priscila chest pain. Patient states symptoms occur after he takes his beta-arelis. Patient has a history of SVT which is why he is on the beta-arelis. Patient monitors his heart rate and observed the heart rate symptoms are mild to moderate in intensity. No specific worsening improving factors. Patient voices no other complaints or concerns at this time. Portions of this note were created with voice recognition technology. There may be grammatical, spelling, punctuation or sound alike errors Timing/Duration: week(s) Severity: moderate Modifying Factors: Improves With: nothing Associated Symptoms: denies symptoms (1 week) Allergies/Adverse Reactions: amoxicillin Allergy (Verified 04/22/22 16:26) cephalexin [From Keflex] Allergy (Verified 04/22/22 16:26) Home Medications: atenoloL [Atenolol] 1 tab PO DAILY 08/24/21 [History] hydroCHLOROthiazide [Hydrochlorothiazide] 1 tab PO DAILY 08/24/21 [History] Atenolol 50 mg [Tenormin 50 mg] 50 mg PO DAILY 04/22/22 [History] Fenofibrate [Fenoglide] 1 ea DAILY 04/22/22 [History] Metformin HCl 500 mg [Glucophage 500 MG] 1 ea DAILY 04/22/22 [History] Hx Tetanus, Diphtheria Vaccination/Date Given: No Hx Influenza Vaccination/Date Given: No Hx Pneumococcal Vaccination/Date Given: No Immunizations Up to Date: Yes Travel Risk - International Travel Have you traveled outside of the country in past 3 weeks: No - Coronavirus Screening Are you exhibiting any of the following symptoms?: No Close contact with a COVID-19 positive Pt in past 14-21 Days: No - Vaccine Status Have you recieved a Covid-19 vaccination: No - Review of Systems Constitutional: No Symptoms, No Fever, No Chills Eyes: No Symptoms Ears, Nose, & Throat: No Symptoms Respiratory: No Symptoms, No Cough, No Dyspnea Cardiac: No Symptoms, No Chest Pain, No Edema, No Syncope Abdominal/Gastrointestinal: No Symptoms, No Abdominal Pain, No Nausea, No Vomiting, No Diarrhea Genitourinary Symptoms: No Symptoms, No Dysuria Musculoskeletal: No Symptoms, No Back Pain, No Neck Pain Skin: No Symptoms, No Rash Neurological: No Symptoms, No Dizziness, No Focal Weakness, No Sensory Changes Psychological: No Symptoms Endocrine: No Symptoms Hematologic/Lymphatic: No Symptoms Immunological/Allergic: No Symptoms All Other Systems: Reviewed and Negative - Past Medical History Pertinent Past Medical History: Yes Neurological History: No Pertinent History ENT History: No Pertinent History Cardiac History: Hypertension Respiratory History: No Pertinent History Endocrine Medical History: Diabetes Type II Musculoskeletal History: No Pertinent History GI Medical History: No Pertinent History History: No Pertinent History Psycho-Social History: No Pertinent History Male Reproductive Disorders: No Pertinent History Other Medical History: NEW ONSET OF DIABETES - Past Surgical History Past Surgical History: No Neuro Surgical History: No Pertinent History Cardiac: No Pertinent History Respiratory: No Pertinent History Gastrointestinal: No Pertinent History Genitourinary: No Pertinent History Musculoskeletal: No Pertinent History Male Surgical History: No Pertinent History - Social History Smoking Status: Current every day smoker How long have you smoked: years Exposure to second hand smoke: No Drug Use: none Patient Lives Alone: No Significant Family History: no pertinent family hx - Nursing Vital Signs Nursing Vital Signs: Initial Vital Signs Temperature 97.0 F 04/27/22 17:42 Pulse Rate 59 L 04/27/22 17:42 Respiratory Rate 20 04/27/22 17:42 Blood Pressure 174/102 04/27/22 17:42 O2 Sat by Pulse Oximetry 98 04/27/22 17:42 Pain Scale Pain Intensity 0 - Physical Exam General Appearance: no apparent distress, alert Eye Exam: PERRL/EOMI, eyes nml inspection Ears, Nose, Throat Exam: normal ENT inspection, TMs normal, pharynx normal, moist mucous membranes Neck Exam: normal inspection, non-tender, supple, full range of motion Respiratory Exam: normal breath sounds, lungs clear, airway intact, No respiratory distress Cardiovascular Exam: regular rate/rhythm, normal heart sounds, normal peripheral pulses Gastrointestinal/Abdomen Exam: soft, normal bowel sounds, No tenderness, No mass Back Exam: normal inspection, normal range of motion, No CVA tenderness, No vertebral tenderness Extremity Exam: normal inspection, normal range of motion, pelvis stable Neurologic Exam: alert, oriented x 3, cooperative, normal mood/affect, nml cerebellar function, nml station & gait, sensation nml, No motor deficits Skin Exam: normal color, warm, dry, No rash Lymphatic Exam: No adenopathy SpO2 Interpretation: normal SpO2: 95 O2 Delivery: Room Air - Course Nursing assessment & vital signs reviewed: Yes - Radiology Exams Chest X-ray Interpretation: Interpreted by me (Normal chest x-ray) Ordered Tests: Active Orders 24 hr Category Date Time Status General Repairer STAT Care 04/27/22 17:46 Completed EKG-ER Only STAT Care 04/27/22 17:46 Completed Pulse Oximetry (ED) STAT Care 04/27/22 17:46 Completed CHEST 1 VIEW (PORTABLE) Stat Exams 04/27/22 17:46 Taken CBC W DIFF Stat Lab 04/27/22 18:10 Completed CMP Stat Lab 04/27/22 18:10 Completed D-DIMER QUANTITATIVE Stat Lab 04/27/22 18:10 Completed TROPONIN Q4H Lab 04/27/22 18:10 Completed TROPONIN Q4H Lab 04/27/22 22:00 Ordered UA W/RFX CULTURE Stat Lab 04/27/22 Ordered Urine Triage Profile Stat Lab 04/27/22 18:14 Ordered Lab/Rad Data: Laboratory Result Diagrams 04/27/22 18:10 04/27/22 18:10 Laboratory Results 04/27/22 04/27/22 04/27/22 Range/Units 18:10 18:10 18:10 WBC (4.0-10.5) x10^3/uL RBC (4.1-5.6) x10^6/uL Hgb (12.5-18.0) g/dL Hct (42-50) % MCV (78-100) fL MCH (26-32) pg MCHC (32-36) g/dL RDW (11.5-14.0) % Plt Count (150-450) x10^3/uL MPV (7.5-11.0) fL Gran % (36.0-66.0) % Immature Gran % (Auto) (0.00-0.4) % Nucleat RBC Rel Count (0.00-0.1) % Eos # (Auto) (0-0.5) x10^3/uL Immature Gran # (Auto) (0.00-0.03) x10^3u/L Absolute Lymphs (auto) (1.0-4.6) x10^3/uL Absolute Monos (auto) (0.0-1.3) x10^3/uL Absolute Nucleated RBC (0.00-0.01) x10^3u/L Lymphocytes % (24.0-44.0) % Monocytes % (0.0-12.0) % Eosinophils % (0.00-5.0) % Basophils % (0.0-0.4) % Absolute Granulocytes (1.4-6.9) x10^3/uL Basophils # (0-0.4) x10^3/uL D-Dimer < 0.19 (0.0-0.50) mg/L Sodium 138 (137-145) mmol/L Potassium 3.7 (3.5-5.1) mmol/L Chloride 99 (98-107) mmol/L Carbon Dioxide 34 H (22-30) mmol/L Anion Gap 8.2 (5-15) MEQ/L BUN 11 (9-20) mg/dL Creatinine 1.00 (0.66-1.25) mg/dL Estimated GFR > 60.0 ML/MIN Glucose 120 H (74-106) mg/dL Calcium 9.2 (8.4-10.2) mg/dL Total Bilirubin 1.00 (0.2-1.3) mg/dL AST 36 (17-59) U/L ALT 55 H (0-50) U/L Alkaline Phosphatase 50 (38-126) U/L Troponin I < 0.012 (0.000-0.034) ng/mL Serum Total Protein 8.0 (6.3-8.2) g/dL Albumin 4.7 (3.5-5.0) g/dL 04/27/22 Range/Units 18:10 WBC 10.6 H (4.0-10.5) x10^3/uL RBC 5.75 H (4.1-5.6) x10^6/uL Hgb 16.9 (12.5-18.0) g/dL Hct 50.5 H (42-50) % MCV 87.8 (78-100) fL MCH 29.4 (26-32) pg MCHC 33.5 (32-36) g/dL RDW 13.0 (11.5-14.0) % Plt Count 234 (150-450) x10^3/uL MPV 10.0 (7.5-11.0) fL Gran % 71.3 H (36.0-66.0) % Immature Gran % (Auto) 0.5 H (0.00-0.4) % Nucleat RBC Rel Count 0.0 (0.00-0.1) % Eos # (Auto) 0.30 (0-0.5) x10^3/uL Immature Gran # (Auto) 0.05 H (0.00-0.03) x10^3u/L Absolute Lymphs (auto) 1.97 (1.0-4.6) x10^3/uL Absolute Monos (auto) 0.63 (0.0-1.3) x10^3/uL Absolute Nucleated RBC 0.00 (0.00-0.01) x10^3u/L Lymphocytes % 18.6 L (24.0-44.0) % Monocytes % 5.9 (0.0-12.0) % Eosinophils % 2.8 (0.00-5.0) % Basophils % 0.9 (0.0-0.4) % Absolute Granulocytes 7.54 H (1.4-6.9) x10^3/uL Basophils # 0.10 (0-0.4) x10^3/uL D-Dimer (0.0-0.50) mg/L Sodium (137-145) mmol/L Potassium (3.5-5.1) mmol/L Chloride (98-107) mmol/L Carbon Dioxide (22-30) mmol/L Anion Gap (5-15) MEQ/L BUN (9-20) mg/dL Creatinine (0.66-1.25) mg/dL Estimated GFR ML/MIN Glucose (74-106) mg/dL Calcium (8.4-10.2) mg/dL Total Bilirubin (0.2-1.3) mg/dL AST (17-59) U/L ALT (0-50) U/L Alkaline Phosphatase (38-126) U/L Troponin I (0.000-0.034) ng/mL Serum Total Protein (6.3-8.2) g/dL Albumin (3.5-5.0) g/dL - Progress Progress: improved Progress Note: Patient reassessed. He feels well. Work-up essentially nonremarkable. However patient correlates his sensation of dizziness with bradycardia which occurs after taking his beta-arelis. We will apply a Holter monitor for further evaluation. Patient states his primary care doctor was planning on placing a Holter monitor. Patient requesting that we do a prior to his discharge today. Holter monitor ordered entered. 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 They we discussed whether or not he should continue on this medication. Patient voices no other complaints or concerns at this time. He agrees to follow-up with his primary care doctor within 48 hours for evaluation. Portions of this note were created with voice recognition technology. There may be grammatical, spelling, punctuation or sound alike errors 04/27/22 20:32 Counseled pt/family regarding: lab results, diagnosis, need for follow-up, rad results - Departure Departure Disposition: Home Clinical Impression: Symptomatic bradycardia Condition: Stable Critical Care Time: No Referrals: TIMUR POSEY [Primary Care Provider] - Follow up/PCP as directed Instructions: Dizziness, Nonvertigo, (DC) Additional Instructions: Discharge/Care Plan SINDYDEANA was seen on 04/27/22 in the Emergency Room. The patient was counseled regarding Diagnosis,Lab results, Imaging studies, need for follow up and when to return to the Emergency Room. Prescriptions given: Discharge Note I have spoken with the patient and/or caregivers. I have explained the patient's condition, diagnosis and treatment plan based on the information available to me at this time. I have answered the patient's and/or caregiver's questions and addressed any concerns. The patient and/or caregivers have as good understanding of the patient's diagnosis, condition and treatment plan as can be expected at this point. The vital signs have been stable. The patient's condition is stable and appropriate for discharge from the emergency department. The patient will pursue further outpatient evaluation with the primary care physician or other designated or consulting physician as outlined in the discharge instructions. The patient and/or caregivers are agreeable to this plan of care and follow-up instructions have been explained in detail. The patient and/or caregivers have received these instruction. The patient/and or caregivers are aware that any significant change in condition or worsening of symptoms should prompt an immediate return to this or the closest emergency department or call 911.
[2022-04-27 20:28] VITALS: BP 114/70; PULSE 60
[2022-04-27 20:34] VITALS: O2SAT 95
--- NOTE | 2022-04-28 08:38 | XRAY ---
Indication: Short of breath. Comparison: April 22, 2022 Portable chest again demonstrates normal heart, lungs, and bony thorax.
== END 2022-04-27 20:28 | disposition home or self-care (01) ==
LOC: ED 17:36
DX: R00.1 Bradycardia, unspecified (principal); R42 Dizziness and giddiness; R07.9 Chest pain, unspecified; I10 Essential (primary) hypertension; E11.9 Type 2 diabetes mellitus without complications; Z72.0 Tobacco use; Z79.84 Long term (current) use of oral hypoglycemic drugs; Z79.899 Other long term (current) drug therapy; Z28.310 Unvaccinated for COVID-19
CPT/HCPCS: 36415; 71045; 80053; 84484; 85025; 85379; 93005; 93041; 94760; 99284

== ENCOUNTER 2022-08-31 17:07 | Emergency (ER) | payer MEDICARE, OTHER ==
--- NOTE | 2022-08-31 17:11 | ERPHSYRPT ---
- History of Present Illness Time Seen by Provider: 08/31/22 17:11 Source: patient Exam Limitations: no limitations Physician History: This is a morbidly obese 42-year-old white male patient has a history of hypertension, diabetes and hypothyroidism. He presents with low back pain. Patient has a history of lumbosacral surgery in the past. Patient's symptoms began approximately 4 days ago and it was a mild ache but in the last few days it is worsened. Patient is not on any narcotics. He wants to avoid steroids because it affects his blood pressure. He does not want to use muscle relaxant because it makes his heart rate too low. He states he is primarily concerned to make sure that the back pain is or is not due to a urinary tract infection. Patient's symptoms are in the left side and it does radiate into the left hip. There is no loss of bowel control and no urinary incontinence. Timing/Duration: day(s) (4) Method of Injury: other (No injury) Quality: sharp Back Pain Location: lumbar spine, paraspinous muscles (Left side) Back Pain Radiation: buttocks (Upper) Severity of Pain-Max: mild (To moderate) Severity of Pain-Current: mild Modifying Factors: Improves With: movement Associated Symptoms: lower back pain, No urinary incontinence, No loss of bowel control, No constipation, No numbness in legs/feet Previous symptoms: same symptoms as today, no recent treatment Allergies/Adverse Reactions: amoxicillin Allergy (Verified 04/22/22 16:26) cephalexin [From Keflex] Allergy (Verified 04/22/22 16:26) Home Medications: atenoloL [Atenolol] 1 tab PO DAILY 08/24/21 [History] hydroCHLOROthiazide [Hydrochlorothiazide] 1 tab PO DAILY 08/24/21 [History] Fenofibrate [Fenoglide] 1 ea DAILY 04/22/22 [History] Metformin HCl 500 mg [Glucophage 500 MG] 1 ea DAILY 04/22/22 [History] Levothyroxine Sodium 25 Mcg [Synthroid 25 Mcg] 25 mcg PO DAILY 08/31/22 [History] Hx Tetanus, Diphtheria Vaccination/Date Given: No Hx Influenza Vaccination/Date Given: No Hx Pneumococcal Vaccination/Date Given: No Travel Risk - International Travel Have you traveled outside of the country in past 3 weeks: No - Coronavirus Screening Are you exhibiting any of the following symptoms?: No Close contact with a COVID-19 positive Pt in past 14-21 Days: No - Vaccine Status Have you recieved a Covid-19 vaccination: No - Review of Systems Constitutional: No Symptoms Eyes: No Symptoms Ears, Nose, & Throat: No Symptoms Respiratory: No Symptoms Cardiac: No Symptoms Abdominal/Gastrointestinal: No Symptoms Genitourinary Symptoms: No Symptoms Musculoskeletal: Back Pain Skin: No Symptoms Neurological: No Symptoms Psychological: No Symptoms Endocrine: No Symptoms Hematologic/Lymphatic: No Symptoms Immunological/Allergic: No Symptoms - Past Medical History Pertinent Past Medical History: Yes Neurological History: No Pertinent History ENT History: No Pertinent History Cardiac History: Hypertension Respiratory History: No Pertinent History Endocrine Medical History: Diabetes Type II Musculoskeletal History: No Pertinent History GI Medical History: No Pertinent History History: No Pertinent History Psycho-Social History: No Pertinent History Male Reproductive Disorders: No Pertinent History Other Medical History: NEW ONSET OF DIABETES - Past Surgical History Past Surgical History: No Neuro Surgical History: No Pertinent History Cardiac: No Pertinent History Respiratory: No Pertinent History Gastrointestinal: No Pertinent History Genitourinary: No Pertinent History Musculoskeletal: No Pertinent History Male Surgical History: No Pertinent History - Social History Smoking Status: Current every day smoker How long have you smoked: years Exposure to second hand smoke: No Drug Use: none Patient Lives Alone: No Significant Family History: no pertinent family hx - Nursing Vital Signs Nursing Vital Signs: Initial Vital Signs Temperature 97.2 F 08/31/22 17:17 Pulse Rate 79 08/31/22 17:17 Respiratory Rate 22 08/31/22 17:17 Blood Pressure 165/106 08/31/22 17:17 O2 Sat by Pulse Oximetry 98 08/31/22 17:17 Pain Scale Pain Intensity 6 - Physical Exam General Appearance: no apparent distress, alert, obese Eye Exam: PERRL/EOMI, eyes nml inspection Ears, Nose, Throat Exam: normal ENT inspection, moist mucous membranes Neck Exam: normal inspection, non-tender, supple, full range of motion Respiratory Exam: airway intact, No chest tenderness, No respiratory distress Gastrointestinal Exam: No tenderness Rectal Exam: not done Back Exam: normal inspection, normal range of motion, muscle spasm (Lumbar level left side), No CVA tenderness, No vertebral tenderness Extremity Exam: normal inspection, normal range of motion, pelvis stable Neurologic Exam: alert, oriented x 3, cooperative, double cut sawyer II-XII nml as tested, normal mood/affect, nml cerebellar function, nml station & gait, sensation nml Skin Exam: normal color, warm, dry Lymphatic Exam: No adenopathy SpO2 Interpretation: normal O2 Delivery: Room Air - Course Nursing assessment & vital signs reviewed: Yes Ordered Tests: Active Orders 24 hr Category Date Time Status UA W/RFX UR CULTURE Stat Lab 08/31/22 17:43 Completed Lab/Rad Data: Laboratory Results 08/31/22 Range/Units 17:43 Urine Color Yellow (Yellow) Urine Appearance Clear (Clear) Urine pH 6.0 (4.6-8.0) Ur Specific [place] 1.010 (1.005-1.030) Urine Protein Negative (Negative) Urine Glucose (UA) Negative (Negative) mg/dL Urine Ketones Negative (Negative) Urine Blood Negative (Negative) Urine Nitrite Negative (Negative) Urine Bilirubin Negative (Negative) Urine Urobilinogen 0.2 (0.2) mg/dL Ur Leukocyte Esterase Negative (Negative) U Hyaline Cast (Auto) NONE SEEN (0-2) /LPF Urine Microscopic RBC 0-2 (0-5) /HPF Urine Microscopic WBC 0-2 (0-5) /HPF Ur Epithelial Cells None Seen (None Seen) /HPF Urine Bacteria None Seen (None Seen) /HPF Urine Culture Reflexed NO (NO) - Progress Progress: unchanged Progress Note: 08/31/22 19:02 Medical decision making: This patient's medical issue level of complexity is low. After long discussion with him and obtaining history directly from the patient, I asked him directly what it was he was wanting me to do for him. I did a physical examination and there is no bruising in the area of a well-healed scar in the lumbar region. There was no evidence of any infection. Based on his history and physical findings, I opted for no radiographic studies since there was no injury that occurred. I discussed with him performing a plain film x-ray. However, I do not feel this will show any inflammation around the nerves or scar tissue. This is what the patient was concerned about. In addition, patient was concerned about possible urinary tract/kidney infection. Patient declined the plain x-ray. I also suggested providing him with a narcotic pill, and time for inflammatory medication (steroids or NSAIDs) and a muscle relaxant here in the emergency room. Patient does not want narcotic medication, steroids or anti-inflammatory medication. He also does not want muscle relaxant. Together, we decided that since there is no emergency issue, no radiographic studies are necessary. He also does not want any of the medications that I would use to help his back pain and therefore he will follow- up with his primary care doctor or the orthopedic surgeons at [facility] who performed his surgical procedure. Physical therapy and/or MRI of the lumbar spine might be indicated. He will discuss these issues with his primary care doctor or orthopedic surgeon. Counseled pt/family regarding: diagnosis, need for follow-up - Departure Departure Disposition: Home Clinical Impression: Low back pain, Encounter for medical screening examination Condition: Stable Critical Care Time: No Referrals: TIMUR POSEY [Primary Care Provider] - Follow up/PCP as directed Additional Instructions: Continue your medication as prescribed. Follow-up with your primary care physician for further evaluation and management
[2022-08-31 17:23] VITALS: O2SAT 98
[2022-08-31 18:07] LABS: Appearance Clear (Clear); Bacteria None Seen /HPF (None Seen); Bilirubin Negative (Negative); Blood Negative (Negative); Epithelial Cells None Seen /HPF (None Seen); Glucose, Urine Negative (Negative); Hyaline Casts NONE SEEN /LPF (0-2); Ketones Negative (Negative); Leukocyte Esterase Negative (Negative); Nitrite Negative (Negative); Protein,Urine Dip Negative (Negative); RBC 0-2 /HPF (0-5); Urobilinogen 0.2 mg/dL (0.2); WBC 0-2 /HPF (0-5)
[2022-08-31 18:17] LABS: ADD URINE CULTURE? NO (NO)
[2022-08-31 18:22] VITALS: BP 119/69; PULSE 66
== END 2022-08-31 19:28 | disposition home or self-care (01) ==
LOC: ED 17:07
DX: M54.50 Low back pain, unspecified (principal); E11.9 Type 2 diabetes mellitus without complications; I10 Essential (primary) hypertension; Z79.84 Long term (current) use of oral hypoglycemic drugs; Z79.899 Other long term (current) drug therapy; Z28.310 Unvaccinated for COVID-19; Z72.0 Tobacco use
CPT/HCPCS: 81001; 99281